=== PATIENT | male | born 1955 | race Caucasian/White ===

== ENCOUNTER 2025-02-28 16:29 | Emergency (ER) | payer BC, MEDICARE, OTHER ==
[~2025-02-28] VITALS: Ht 190.5 cm; Wt 113.4 kg
[2025-02-28 16:42] VITALS: TEMP 98
[2025-02-28 17:23] LABS: PLATELET COUNT (AUTO) 216 K/uL (150-450); RED BLOOD CELL COUNT(AUTO) 4.60 MIL/uL (4.5-6.0); RED CELL DISTRIBUTION WIDTH 12.8 % (11.5-15.0); WHITE BLOOD COUNT (AUTO) 9.6 K/uL (4.3-11.0)
[2025-02-28 17:36] LABS: ASPARTATE AMINOTRANSFERASE 29 U/L (15-37); CALCIUM, SERUM 8.6 mg/dL (8.5-10.1); CREATININE 1.1 mg/dL (0.6-1.3); SODIUM SERUM 140 mmol/L (136-145); TOTAL PROTEIN, SERUM 8.1 g/dL (6.4-8.2); UREA NITROGEN, BLOOD 16 mg/dL (7-18)
[2025-02-28] MEDS ORDERED: IV NS 0.9% 250 ML IV ONE (17:45)
[2025-02-28] MEDS ORDERED: IOHEXOL-300 100 ML VIAL IV ONE (17:45)
[2025-02-28 17:50] LABS: LACTIC ACID 2.7 mmol/L (0.4-2.0)
[2025-02-28 17:54] LABS: APPEARANCE,URINE CLEAR (CLEAR); BLOOD, URINE NEGATIVE Ery/uL (NEGATIVE); LEUKOCYTE ESTERASE ,URINE TRACE (NEGATIVE); NITRITE, URINE NEGATIVE (NEGATIVE); UGLUCOSE NEGATIVE (NEGATIVE)
[2025-02-28 18:03] LABS: ADD URINE CULTURE YES
[2025-02-28 18:04] LABS: SQUAMOUS EPITHELIAL CELL,UR Moderate /HPF (None Seen)
[2025-02-28] MEDS: IV NS 0.9% 1,000 ML BAG IV ONE (18:30)
[2025-02-28 19:46] VITALS: BP 140/90; O2SAT 97
== END 2025-02-28 19:40 | disposition home or self-care (01) ==
LOC: ER 16:56
DX: K65.4 Sclerosing mesenteritis (principal); I10 Essential (primary) hypertension
CPT/HCPCS: 99285; 74177; 85025; 80048; 87086; 83605; 83690; 80076; 81001; 36415; J7050; Q9967